=== PATIENT | male | born 1955 | race Caucasian/White ===

== ENCOUNTER 2021-10-04 19:03 | Inpatient (IN) | payer MEDICARE, SELFPAY ==
[2021-10-04 19:25] VITALS: BP 127/79; PULSE 68; RESP 18; TEMP 36.6; O2SAT 96; BMI 28.0
[2021-10-04 22:00] VITALS: BP 127/73; PULSE 75; RESP 18; TEMP 36.4; O2SAT 95; BMI 28.0
[2021-10-04] MEDS: Atorvastatin Calcium 40 MG Tablet PO (22:39)
[2021-10-04] MEDS: MELATONIN 3 MG TABLET PO (22:39)
[2021-10-05] MEDS: Acetaminophen 325 MG Tablet 650 MG PO (04:20)
[2021-10-05] MEDS: Enoxaparin 40 MG/0.4 ML Syringe SC (04:21)
[2021-10-05 05:47] VITALS: O2SAT 98
[2021-10-05 05:51] LABS: Absolute Lymphocyte Count 1.36 X10^3/uL (0.83-4.51); Absolute Neutrophil Count 3.7 X10^3/uL (2.0-7.7); Basophil# 0.02 X10^3/uL; Basophil% 0.3 % (0-1); Eosinophil# 0.17 X10^3/uL; Eosinophils% 2.9 % (0-5); Hemoglobin 15.3 g/dL (13.0-16.5); Lymphocyte # 1.36 X10^3/ul (0.83-4.51); Lymphocyte % 23.1 % (19-41); Mean Corp Hgb Conc 34.8 g/dL (32-36); Mean Corpuscular Hgb 28.7 pg (27.0-32.0); Mean Corpuscular Volume 82.4 fL (80-94); Monocyte# 0.64 X10^3/uL; Monocyte% 10.8 % (0-10); NRBC Flagged by Analyzer 0 % (0-5); Neutrophil # 3.69 X10^3/uL (2.7-7.7); Neutrophil % 62.6 % (47-70); Platelet Count 223 K/mm3 (150-450); RBC Distribution Width CV 12.5 % (11.6-14.6); RBC Distribution Width SD 37.4 fl (35.1-43.9); Red Blood Count 5.34 M/mm3 (4.6-6.2); White Blood Count 5.9 K/mm3 (4.4-11.0)
[2021-10-05 06:16] LABS: ALB/GLOB Ratio 1.2 RATIO (0.9-2.4); AST(SGOT) 24 U/L (15-37); Alanine Aminotransfer ALT/SGPT 56 U/L (16-61); Albumin, Serum 3.7 g/dL (3.2-5.0); Alkaline Phosphatase 96 U/L (45-117); Anion Gap 8 (5-15); BUN 16 mg/dL (7-18); BUN/Creat Ratio 21.2 RATIO (10-20); Calcium,Total 9.2 mg/dL (8.5-10.1); Chloride 101 mmol/L (98-107); Creatinine, Serum 0.76 mg/dL (0.70-1.30); EST Glomerular Filtration Rate 109 mL/min (>60); Est Glom Filt Rate - Afr Amer 132 mL/min (>60); Estimated Creatinine Clearance 71.68 ml/min; Globulin 3.2 g/dL (2.2-4.2); Glucose 104 mg/dL (74-106); Magnesium 2.1 mg/dL (1.6-2.6); Phosphorus 3.3 mg/dL (2.5-4.9); Potassium 3.7 mmol/L (3.5-5.1); Protein, Total 6.9 g/dL (6.4-8.2); Sodium Level 138 mmol/L (136-145)
[2021-10-05] MEDS: Clopidogrel Bisulfate 75 MG Tablet PO (08:34)
[2021-10-05] MEDS: Lisinopril 10 MG Tablet PO (08:34)
[2021-10-05] MEDS: Aspirin E.C. 81 MG Tablet PO (08:34)
[2021-10-05 10:00] VITALS: BP 121/83; PULSE 69; RESP 16; TEMP 36.2; O2SAT 97
--- NOTE | 2021-10-05 10:51 | HP.PCM_ITS ---
HPI - General General Date of Admission: 10/04/21 Date of Service: 10/05/21 HPI Narrative LINDA ALMEIDA, is a 66 YO overweight male with no significant PMH who pre sented to an outside ED on 09/28/21 c/o Left arm weakness/paresthesias and a OLIVA that started the preceding day. 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 CTH showed a right-sided internal carotid artery long segment occlusion just distal to the bifurcation. The right-sided intracranial ci rculation was partially supplied through external carotid/ophthalmic artery communication as well as a patent anterior communicating artery. He was transferred to [facility] and the NIHSS was 3 at presentation to [facility] (1 for paresthesia and 2 for inattention/neglect of the L arm and leg). CTP showed a moderate penumbra. TTE showed a normal EF with no wall motion abnormalities, no significant valvular heart disease and no PFO. LDL was 117 and the HGBA1C was 5.7. The HDL was 53. Neurosurgery was consulted and a DCA was done and showed a R. ICA dissection. He was started on DAPT and he has a follow up CT angiogram scheduled for October. While at [facility] he was seen by PT/OT and ST and acute inpt rehab was recommended. He was transferred to [facility] acute inpt rehab on 10/04/21 for 3 hours of therapy daily to restore function/independence at or near his prior level of function. [facility] Medical History (Updated 10/05/21 @ 13:[address] Radha Lacey, ) Family history of colon cancer in mother Internal carotid artery dissection Melanoma Overweight Medical History unable to obtain Home Medications Lovenox 40 mg OTHER DAILY 10/04/21 [History Last Taken Unknown] aspirin 81 mg PO/SL DAILY 10/04/21 [History Last Taken Unknown] atorvastatin 40 mg PO/SL QHS 10/04/21 [History Last Taken Unknown] clopidogrel [Plavix] 75 mg PO DAILY 10/04/21 [History Last Taken Unknown] lisinopril 10 mg PO/SL DAILY 10/04/21 [History Last Taken Unknown] melatonin 3 mg PO/SL QHS 10/04/21 [History Last Taken Unknown] Allergy/AdvReac Type Severity Reaction Status Date / Time Penicillins [PCN] Allergy PT UNSURE Verified 10/04/21 19:27 OF REACTION Family History (Updated 10/05/21 @ 12:[address] Radha Lacey DO) Father CAD (coronary artery disease) Diabetes Kidney disease Mother Colon cancer Sister Diabetes Brother Diabetes Other Hypertension Family History unable to obtain Surgical History (Updated 10/05/21 @ 13:[address] Radha Lacey DO) History of ankle surgery History of melanoma excision History of tonsillectomy Surgical History unable to obtain Social History (Updated 10/05/21 @ 13:[address] Radha Lacey DO) household members: spouse housing: house number of children: 4 current occupation: [employer] history of recent travel: No current gender identity: male Smoking Status: Former smoker quit date: 11/17/00 Tobacco: How many years used: 20 Electronic Cigarette Use: not used smoking status stop date: 11/17/00 how long ago did patient quit smokin years......he only smoked a rare cigar and never smoked cigarettes. second hand exposure: Yes quit status: quit date established counseling given: patient declined alcohol intake: current alcohol intake frequency: holidays/special occasions only Previous attempts at quittin (pt rarely ever drinks) substance use type: does not use ROS Constitutional Constitutional: Reports difficulty sleeping; Denies anorexia, change in weight, chills, fatigue, fever(s), night sweats or weakness Eyes Eyes: Denies blurry vision, change in vision, eye pain or loss of vision ENT HEENT: Denies abnormal hearing, dysphagia, headache(s), hearing loss, nasal congestion or sore throat Cardiovascular Cardiovascular: Reports lightheadedness; Denies chest pain, dyspnea on exertion, edema, orthopnea, palpitations, paroxysmal nocturnal dyspnea or syncope Respiratory/Chest Respiratory/Chest: Denies cough, dyspnea, shortness of breath at rest, shortness of breath with exertion or wheezing Gastrointestinal Gastrointestinal: Reports constipation; Denies abdominal pain, diarrhea, dyspepsia, hematemesis, hematochezia, nausea or vomiting Genitourinary Genitourinary: Denies dysuria, hematuria, nocturia, urinary frequency, urinary hesitancy, urinary incontinence or urinary urgency Musculoskeletal Musculoskeletal: Reports muscle spasms; Denies back pain, joint pain, joint swelling or neck pain Integumentary Integumentary: Reports dry skin; Denies change in pigmentation, changing lesions, jaundice, unusual bruising or wounds Neurologic Neurologic: Reports disequilibrium, dizziness, focal weakness and paresthesias; Denies confusion, headache(s), seizures or tremor(s) Psychiatric Psychiatric: Denies anxiety, depression, homicidal ideation or suicidal ideation Endocrine Endocrinology: Denies change in body appearance, polydipsia or polyuria Hematologic/Lymphatic Hematologic/Lymphatic: Denies easy bleeding, easy bruising or lymphadenopathy Allergic/Immunologic Allergic/Immunologic: Denies rhinitis, eczemia or asthma Vital Signs Vital Signs Vital Signs: 10/04/21 19:25 10/04/21 22:00 10/05/21 05:47 Temperature 97.8 F 97.6 F L Temperature Source Temporal Temporal Pulse Rate 68 75 Respiratory Rate 18 18 Respiratory Effort Normal Non-Labored Respiratory Depth Normal Respiratory Pattern Normal Blood Pressure 127/79 H 127/73 H Blood Pressure Mean 95 91 Blood Pressure Source Monitor Monitor Blood Pressure Position Semi-Fowlers Semi-Fowlers Blood Pressure Location Right Arm Right Arm Pulse Ox 96 95 98 Oxygen Delivery Method Room Air Room Air Room Air Weight Weight: 189 lb 13.088 oz Body Mass Index (BMI) 28.0 Physical Exam Const alert, oriented x3, no apparent distress, average body habitus, healthy appearing and well nourished Constitutional Narrative: Making good eye contact, appropriate General Appearance: cooperative, comfortable and well kempt HEENT normocephalic, hearing grossly normal bilaterally and moist oral mucous membranes Eyes conjunctivae normal and no scleral icterus Neck no lymphadenopathy, supple, no JVD, thyroid normal and no carotid bruits General: trachea midline Chest Chest: symmetrical chest wall rise Resp normal respiratory effort, no use of accessory muscles and clear to auscultation bilaterally Resp Narrative: Not tachypneic and no conversational dyspnea. Excellent air exchange throughout Cardio regular rate, regular rhythm, S1 normal heart sound, S2 normal heart sound, no murmurs, no rub and no gallops Jugular Venous Distention: Negative for JVD GI normal to inspection, nondistended, normoactive bowel sounds, soft to palpation and non-tender GI Narrative: No guarding with palpation. no CVA tenderness Back/Spine Lumbar Spine / Lower Back: normal to inspection; Negative for paraspinal muscle tenderness or paraspinal muscle spasm Extremity normal capillary refill, no clubbing, cyanosis or edema and no pedal edema Extremity Narrative: Negative Jose's and Fredrick's signs Skin no wounds, no jaundice and no petechiae Skin Narrative: No rashes, no skin breakdown. He has a cicatrix on the R mid back and on the L shoulder due to melanoma e xcision in the past General Skin Exam: no breakdown Rashes: no rashes Neuro oriented x3 and CN's II-XII intact bilaterally Neuro Narrative: He has Left side neglect/inattention of the arm and the leg. Strength is 5/5 throughout. Decreased sensation and fine motor coordination of the L hand. He is left hand dominant.....this numbness did not exist prior to the stroke Speech: speech normal Sensory Exam: double simultaneous stimulation for sensation abnormal Motor Exam: strength 5/5 throughout Psych affect normal Psych Narrative: Does not make good eye contact. Able to stay on topic and focus. No flight of ideas. Does not appear anxious or depressed. Conversant and relating well to staff. Appearance: grossly normal Attitude: calm Activity / Motor Behavior: Negative for psychomotor agitation, psychomotor slowing, fidgetting, hyperactive, disorganized or restless Results Lab / Micro Data Result Diagrams: 10/05/21 05:08 10/05/21 05:08 Labs: Laboratory Results - last 24 hr 10/05/21 05:08: WBC 5.9, RBC 5.34, Hgb 15.3, Hct 44.0, MCV 82.4, MCH 28.7, MCHC 34.8, RDW Std Deviation 37.4, RDW Coeff of Magdaleno 12.5, Plt Count 223, MPV 10.0, Immature Gran % (Auto) 0.300, Neut % (Auto) 62.6, Lymph % (Auto) 23.1, [place] % (Auto) 10.8 H, Eos % (Auto) 2.9, Baso % (Auto) 0.3, Absolute Neuts (auto) 3.7, Absolute Lymphs (auto) 1.36, Nucleated RBC % 0 10/05/21 05:08: Sodium 138, Potassium 3.7, Chloride 101, Carbon Dioxide 29.0, Anion Gap 8, BUN 16, Creatinine 0.76, Estim Creat Clear Calc 71.68, Est GFR (MDRD) Af Amer 132, Est GFR (MDRD) Non-Af 109, BUN/Creatinine Ratio 21.2 H, Glucose 104, Calcium 9.2, Phosphorus 3.3, Magnesium 2.1, Total Bilirubin 0.60, AST 24, ALT 56, Alkaline Phosphatase 96, Total Protein 6.9, Albumin 3.7, Globulin 3.2, Albumin/Globulin Ratio 1.2 Assessment & Plan Assessment/Plan (1) Physical debility: (2) Internal carotid artery dissection: (3) Ischemic cerebrovascular accident (CVA): (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 DVT prophylaxis with enoxaparin 40 mg subcu daily Follow up with: 1. Dr. Amanuel Cartwright October 31 at [address] angiogram November 05 (arrive by 0800) 3. Dr. Mike Oleary SundayFebruary 01 12 PM (arrive by 1145AM) AM lab including CMP, CBC, Mag and Phos -reviewed His mother had colon cancer and he has never had a colonoscopy. I told him colon cancer can be hereditary and he should ask his PCP about scheduling a colonoscopy post DC. Will need to recheck a liver panel and a lipid panel in 6 weeks. Charges/Coding Visit Charges Inpatient E&M: 12344 Init Hosp L3
--- NOTE | 2021-10-05 11:08 | REHABEVAL_ITS ---
Admission Information Primary Diagnosis:: Physical debility secondary to ischemic stroke. Status Changes from Prescreening?: No changes Identified Actual Problem List:: Cognitve Impr/Memory Loss, Bowel, Constipation, Mobility Impaired, Self Care Deficit, Know.Dfct of Medicaitons and Alteration-Leisure Activ. Potential Problem List:: DVT, Bleeding, Infection, UTI, Aspiration, Falls, Skin Integrity and Depression Risk of Complications DVT: LMWH and TEENA Hose Bleeding: Monitor Lab Values, Nursing to Teach Precautions for anti-coagulation therapy., Wound, if applicable, to be assessed every shift. and Stroke patients assessed for lethargy or change in status. Infection: Clinical Staff to Monitor for S/S of infection: and S/S of infection include fever, redness, warmth, etc. Urinary Tract Infection: Monitor for frequency, burning, discomfort, or incontinence. and Nursing will obtain urine sample for urinalysis and C&S when ordered. Aspiration: Clinical staff will monitor for coughing, drooling, congestion., Speech will evaluate swallowing and dsyphasia. and Nursing will monitor patient swallowing during meals. Falls: Patient will be evaluated for Fall Precautions and Patient will be placed on Fall Precautions as indicated per protocol. Skin Breakdown: Nursing will assess skin daily using assessment tool. and Nursing will place on Skin Breakdown Precautions as indicated. Pain: Clinical staff will assess patient's pain level per protocol., Medications will be given, if needed, and the pain level reassessed. and Other methods: Massage, distraction, decrease stimulus, etc. used PRN. Plan of Care Patient requires physician specializing in physical medicine and rehab oversight to provide close medical supervision of rehab issues including: Pain Management, Sleep Problems, Bowel and Bladder, Medical and co-morbidity Management, DVT prophylaxis, Rehabilitation Leadership and Coordination of treatment team Patient needs Physical Therapy: For a minimum of 1 hour and At least 5 out of 7 days Patient needs Physical Therapy to improve:: Mobility, Strengthening, Transfers, Stretching, ROM, Endurance, Stairs, Gait and Balance Patient needs Occupational Therapy: For a minimum of 1 hour and At least 5 out of 7 days Patient needs Occupational Therapy to improve ADL's incl.: Eating, Grooming, Bathing, Dressing, Toileting, Toilet transfers, Community Reintegration, Higher functioning activities, Household tasks, Adaptive Equipment, Splinting and Other activities as determined Patient requires speech therapy: For a minimum of 1 hour and At least 5 out of 7 days Patient requires speech therapy for: Swallowing, Cognition, Language Skills and Compensatory Strategies Patient requires 24/ Rehabilitation Nursing for: Pain Issues, Identifying and preventing risk factors, Monitoring and reporting current medical conditions, Assisting with ambulation, transfer, and all ADL's, Teaching patients about disease process and medications, Family teaching, Providing safe environment, Bowel and Bladder Issues, Skin integrity and Medication Management Patient needs Blood Bank Calendar Control Clerk/ Case Management for: Discharge Planning, Arranging Home Equipment or Services and Family Interventions Patient needs Dietary and Nutrition Services for: Adequate Nutrition, Nutritional Supplements and Nutritional Education Goals Patient will remain: free from falls and or injury at time of discharge. Patient will perform bed mobility at: MOD I level of assist. Patient will complete transfers from bed to chair at: MOD I level of assist. Patient will ambulate: with LRD and - (Patient will ambulate 750 feet at supervision following written directional cues to find various locations) Patient will complete upper body dressing at: MOD I level of assist. Patient will complete lower body dressing at: MOD I level of assist. Patient will complete toileting at: MOD I level of assist. Patient will perform bathing at: MOD I level of assist. Patient will complete grooming at: MOD I level of assist. Patient will complete home management skills at: MOD I level of assist. Patient will achieve: 12 stairs (With 2 handrails at standby assist) and - (1 curb step) Patient will have pain level of: of 3 or less Patient's skin will: remain intact Patient will receive: adequate nutrition. Discharge Planning Pt Prognosis for Sig. Practical Improv. w/in Reasonable Time: Good Estimated Length of stay (days): 10
--- NOTE | 2021-10-05 13:26 | CASEMGMT ---
Social Work Pt presenting to the Rehab unit with diagnosis of stroke. PHQ9 depression screen completed at this time with a score of 4/27 indicating minimal depression. Pt denies any concerns with depression at this time and is able to identify his and children as support people who assist with coping. Pt made aware SW will remain available as needed. YOLIE Marin
[2021-10-05 13:40] VITALS: BMI 28.0
[2021-10-05 20:25] VITALS: BP 135/83; PULSE 85; RESP 18; TEMP 36.7; O2SAT 95; BMI 28.0
[2021-10-05] MEDS: MELATONIN 3 MG TABLET PO (20:54)
[2021-10-05] MEDS: Senna/Docusate Sodium 1 Tablet 2 TABLET PO (20:54)
[2021-10-05] MEDS: Atorvastatin Calcium 40 MG Tablet PO (20:54)
--- NOTE | 2021-10-06 04:37 | NURSING ---
REVIEWED AND AGREE WITH PATIENT SERVICE TECHNICIAN PST'S FUNCTIONAL ASSESSMENT AND HANDOFF CHARTING.
[2021-10-06] MEDS: Enoxaparin 40 MG/0.4 ML Syringe SC (06:20)
--- NOTE | 2021-10-06 06:46 | NURSING ---
staff to room at 0620; pt laying in the bed with an angry look on his face , when asked what was the matter pt stated that he did not sleep well with all the noise last night. pt stated with all the doors slamming and that man coughing, then that sleeping pill that i'm taking is giving weird dreams and making me do strange things . pt did not elaborate on what when asked, then stated i need some ice water now. staff replied to pt that would be taken care after his medication was given for this morning. staff asked pt if he would like to freshen up for the morning since he showered at . pt replied that he would wash his face but continues to lay in the bed . staff went to get pt water and pt remained in the bed and staff suggested that if he could be assisted in helping pick out clothes for the day, pt was agreeable. pt wanted his black shorts, staff retrieved his bag and was unable to find a 2nd pair of shorts, when staff mentioned that he had his black shorts on pt responded its ok if you cant find them i'll look for them later . staff pulled out a different pair of shorts and pt was agreeable to wearing. pt continued to lay in the bed and staff stated that pt needed to get cleaned up while staff remained in the room but he could have the br door shut for privacy. pt then proceeded to get out of the bed and went to the br and washed his face but did not change his shorts even though staff showed him were they were placed. pt questioned about the bladder scans this am and pt was reminded that this was done on everyone and this gives a idea what is happening if something should go wrong. pt stated ok. pt returned to be the bed to rest before breakfast
[2021-10-06] MEDS: Aspirin E.C. 81 MG Tablet PO (07:50)
[2021-10-06] MEDS: Clopidogrel Bisulfate 75 MG Tablet PO (07:50)
[2021-10-06] MEDS: Lisinopril 10 MG Tablet PO (07:50)
[2021-10-06 10:00] VITALS: BP 137/86; PULSE 66; RESP 18; TEMP 36.1; O2SAT 97
--- NOTE | 2021-10-06 11:04 | PCM.PN.BLA ---
Progress Note César was seen on TEAM rounds today. Hid son Kun participated in rounds by phone. afebrile Blood pressures well controlled Maintaining appropriate oxygen saturation on room air Poor oral intake Lab bowel movement was 10/04/2021 Has only had 1 bladder scan for post void residual and that was 150. No problems per nursing Having trouble with cognition. Also having significant L side neglect. Easily distracted. Having problems sequencing. Medication list was reviewed. He is on dual antiplatelet therapy, a statin and Lisinopril. His only complaint is that he has not been sleeping well with the Melatonin. Denies CP, SOB, palpitations, N/V/abd pain. No calf pain and no lightheadedness. Physical Exam Const alert, oriented x3 and no apparent distress General Appearance: cooperative Resp clear to auscultation bilaterally Resp Narrative: excellent air exchange Effort and Inspection: able to speak in complete sentences Cardio regular rate, regular rhythm, S1 normal heart sound, S2 normal heart sound, no murmurs, no rub and no gallops GI normal to inspection, nondistended, normoactive bowel sounds, soft to palpation and non-tender Extremity normal capillary refill, no calf tenderness and no pedal edema Skin General Skin Exam: no breakdown Rashes: no rashes Neuro Neuro Narrative: 5/5 strength throughout. Decreased sensation and fine motor coordination with the L hand. Left side neglect. No visual disturbance. Easily distracted. Psych affect normal Assessment & Plan Assessment/Plan (1) Physical debility: PLAN: continue therapy.......suspect cognition and left side neglect will be his 2 biggest hurdles. All questions were answered. (2) Internal carotid artery dissection: PLAN: Continue statin and dual antiplatelet therapy. He has a follow-up appointment for a CTA of the head in October. (3) Ischemic cerebrovascular accident (CVA): PLAN: Continue Lipitor, DAPT. (4) Left-sided neglect: PLAN: I will recommend that prior to starting to drive again he take the driving course in [place]. (5) HTN (hypertension): PLAN: Well controlled on Lisinopril. (6) Hyperlipidemia LDL goal <70: PLAN: lipid panel and a liver panel in 6 weeks. (7) Nodule of parotid gland: PLAN: Refer to ENT at [place] - may need a bx to r/o metastatic melanoma. Visit Charges Inpatient E&M: 58454 Subs Hosp L2
--- NOTE | 2021-10-06 14:14 | CASEMGMT ---
Social Work IDT met with patient and son, Kun, via conference call for Team meeting. Discussed patient's progress in PT/OT/ST and nursing. Pt progressing well, however, pt is having most difficulty with left sided neglect, cognition, dizziness, processing, following directions, dexterity and sensation in left hand. Pt is having trouble sleeping. changing medications. Explained Medicare approved 11 days with DC 10/15. The goal is for pt to return home with . Pt requesting outpatient services at [facility]. SW to assist with referrals at [place]. Educated to Stroke Support Group for pt and family to attend. Provided brochure and September newsletter. Pt agreeable to attend while admitted. SW to continue to follow. Dionne Hernandez, BATH ATTENDANT ACCESS DATABASE DEVELOPER
[2021-10-06 16:38] VITALS: O2SAT 96
[2021-10-06 16:45] VITALS: BMI 28.0
[2021-10-06 19:42] VITALS: BP 122/69; PULSE 69; RESP 16; TEMP 36.7; O2SAT 95
[2021-10-06] MEDS: traZODone 50 MG Tablet 25 MG PO (20:06)
[2021-10-06] MEDS: Atorvastatin Calcium 40 MG Tablet PO (20:06)
[2021-10-07 00:23] VITALS: BMI 28.0
[2021-10-07] MEDS: Enoxaparin 40 MG/0.4 ML Syringe SC (05:19)
[2021-10-07] MEDS: Acetaminophen 325 MG Tablet 650 MG PO (05:45)
[2021-10-07 07:00] VITALS: BP 148/68; PULSE 72; RESP 17; TEMP 36; O2SAT 98
[2021-10-07] MEDS: Aspirin E.C. 81 MG Tablet PO (08:43)
[2021-10-07] MEDS: Clopidogrel Bisulfate 75 MG Tablet PO (08:43)
[2021-10-07] MEDS: Lisinopril 10 MG Tablet PO (08:44)
--- NOTE | 2021-10-07 10:22 | PN_ITS ---
Progress Note Afebrile Vital signs are stable and the blood pressure is well controlled Maintaining appropriate oxygen saturation on room air Better oral intake yesterday Post void residuals x2 are less than 200. No complaints today. Slept better last night with the Trazodone. Alert and oriented X 3 HRRR L- CTA No calf pain and no ankle edema making good eye contact. Impressions 1. S/P ischemic CVA in the R MCA distribution 2. R ICA dissection - on DAPT and a statin. 3. HTN - controlled with Lisinopril 4. cognitive dysfunction 5. Loss of sensation in the LUE - he is L hand dominant 6. Left side neglect Continue therapy. His is coming to visit today. Will consult the executive director of marketing to instruct in a low fat, low salt diet. Continue the Trazodone. Visit Charges Inpatient E&M: 51220 Subs Hosp L1
[2021-10-07 11:54] VITALS: O2SAT 98
[2021-10-07 13:33] VITALS: BMI 28.0
[2021-10-07 20:00] VITALS: BP 120/79; PULSE 84; RESP 16; TEMP 36.2; O2SAT 97
[2021-10-07] MEDS: traZODone 50 MG Tablet 25 MG PO (21:04)
[2021-10-07] MEDS: Atorvastatin Calcium 40 MG Tablet PO (21:04)
[2021-10-08 00:59] VITALS: BMI 28.0
[2021-10-08] MEDS: Enoxaparin 40 MG/0.4 ML Syringe SC (06:42)
[2021-10-08 07:41] VITALS: BP 139/93; PULSE 77; RESP 18; TEMP 36.4; O2SAT 96
[2021-10-08] MEDS: Lisinopril 10 MG Tablet PO (07:47)
[2021-10-08] MEDS: Clopidogrel Bisulfate 75 MG Tablet PO (07:47)
[2021-10-08] MEDS: Aspirin E.C. 81 MG Tablet PO (07:47)
[2021-10-08 09:52] VITALS: O2SAT 95
[2021-10-08] MEDS: Acetaminophen 325 MG Tablet 650 MG PO (10:33)
[2021-10-08 12:31] VITALS: BMI 28.0
[2021-10-08] MEDS: Atorvastatin Calcium 40 MG Tablet PO (19:57)
[2021-10-08] MEDS: Senna/Docusate Sodium 1 Tablet 2 TABLET PO (19:57)
[2021-10-08] MEDS: traZODone 50 MG Tablet 25 MG PO (19:58)
[2021-10-08 20:03] VITALS: RESP 16
[2021-10-08 20:12] VITALS: BP 127/91; PULSE 65; RESP 18; TEMP 36.7; O2SAT 94
[2021-10-09] MEDS: Acetaminophen 325 MG Tablet 650 MG PO (05:10)
[2021-10-09] MEDS: Enoxaparin 40 MG/0.4 ML Syringe SC (05:10)
[2021-10-09 07:21] VITALS: BP 126/87; PULSE 93; RESP 16; TEMP 36.5; O2SAT 93
[2021-10-09] MEDS: Aspirin E.C. 81 MG Tablet PO (07:35)
[2021-10-09] MEDS: Lisinopril 10 MG Tablet PO (07:35)
[2021-10-09] MEDS: Clopidogrel Bisulfate 75 MG Tablet PO (07:35)
[2021-10-09 17:00] VITALS: BMI 28.0
[2021-10-09 19:36] VITALS: BP 129/75; PULSE 60; RESP 14; TEMP 36.7; O2SAT 97
[2021-10-09] MEDS: traZODone 50 MG Tablet 25 MG PO (19:48)
[2021-10-09] MEDS: Senna/Docusate Sodium 1 Tablet 2 TABLET PO (19:48)
[2021-10-09] MEDS: Atorvastatin Calcium 40 MG Tablet PO (19:48)
[2021-10-09 19:52] VITALS: PULSE 69; O2SAT 95
[2021-10-10] MEDS: Enoxaparin 40 MG/0.4 ML Syringe SC (05:26)
[2021-10-10 07:28] VITALS: BP 109/72; PULSE 64; RESP 16; TEMP 36.6; O2SAT 96
[2021-10-10] MEDS: Aspirin E.C. 81 MG Tablet PO (07:53)
[2021-10-10] MEDS: Clopidogrel Bisulfate 75 MG Tablet PO (07:53)
[2021-10-10] MEDS: Lisinopril 10 MG Tablet PO (07:53)
--- NOTE | 2021-10-10 09:30 | PN_ITS ---
Progress Note Afebrile VSS Maintaining appropriate oxygen saturation on RA Oral intake is good Discussed with nursing - no problems that need addressed Reviewed the PT/OT/ST notes - He is doing well as far as strength goes. He is ambulating without an AD. Can climb steps and is able to do his ADL's. His processing time is increased. He has significant L side neglect. He had considerable difficulty making a bowl of oatmeal making many errors requiring the therapist to point out the errors. He is starting to realize there is a problem with cognition. The therapists feel he needs intensive therapy with concentration on ST to be able to get to or near his prior level of function.......he was working as a chiu. He is doing better at identify ng visual clues so he can locate his room coming back from surgery. Medication list reviewed. Denies OLIVA, CP, SOB, palpitations, lightheadedness, dysuria, anxiety/depression. He has exercises the ST gave him to do in his room and tells me that he has been working on them. He expressed concern about doing his job as a chiu and using saws and other dangerous equipment. He also tells me that he thinks it is a good idea to attend the driving program in [place] to make sure he is going to be safe on the room when he is ready to try driving again. He tells me that he is not in a hurry. He is having some trouble word finding. Told me he did not have much problem with the oatmeal this morning and it was only a measuring mistake and no big deal. Physical Exam Const alert General Appearance: cooperative, well developed and anxious Eyes PERRL, EOMs intact bilaterally, conjunctivae normal and no scleral icterus Resp normal respiratory effort, normal air movement, no use of accessory muscles and clear to auscultation bilaterally Effort and Inspection: able to speak in complete sentences Cardio regular rate, regular rhythm, S1 normal heart sound, S2 normal heart sound and no gallops GI soft to palpation, non-tender and non-distended Extremity no calf tenderness and no pedal edema Skin General Skin Exam: no breakdown Rashes: no rashes Psych Appearance: grossly normal Attitude: evasive Activity / Motor Behavior: fidgetting, restless and other will not make eye contact with me even when I move my chair directly into the area he is looking. ; Negative for appropriate eye contact Speech: other perseverates somewhat. No slurring. Speech is not pressured. He is a little evasive. 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 Continue therapy. He needs intensive ST and PT/OT will also work with him to follow instructions, sequence, etc. 2. BP is well controlled 3. He is c/o some muscle cramps after doing toe raises. 4. Sleeping better with Trazodone and a new mattress 5. Wants very much to go home and tells me that he is willing to come back as much as he has to for ST. 6. will attempt to talk with his when she comes in next about his anxiety......did this just start? He tells me he was having some problems with memory that predated the stroke. 7. The nodule in the parotid gland needs to be evaluated post DC since he has a hx of melanoma. 8. FH of colon CA. He has never had a colonoscopy. Stool here is heme negative. Needs a colonoscopy in the near future. Visit Charges Inpatient E&M: 23686 Subs Hosp L2
--- NOTE | 2021-10-10 14:07 | CASEMGMT ---
Social Work IDT discussed patient's progress as DC date 10/14 is approaching. Pt is doing well physically, but still significant cognitive deficits. ST recommending continued intensive therapy before transitioning to outpatient. Spoke with pt to discuss possible SNF. Provided SNF list with Medicare ratings. Pt inquired about TCU. Explained TCU and IDT agreeable for transition. Pt requested to speak with son. Spoke with son, answered questions and explained the benefit of continuing with about 2hrs/day of ST in TCU prior to DC home with outpatient. Offered for pt to DC prior to [place], which would give patient about another week of therapy and would already have DC date established. Son agreeable to plan but unsure pt would agree. Son will visit pt this evening and discuss. SW to continue to follow. MACRINA SuW
[2021-10-10 15:51] VITALS: BMI 28.0
[2021-10-10 19:52] VITALS: BP 118/68; PULSE 66; RESP 16; TEMP 36.8; O2SAT 96
[2021-10-10] MEDS: traZODone 50 MG Tablet 25 MG PO (20:35)
[2021-10-10] MEDS: Atorvastatin Calcium 40 MG Tablet PO (20:35)
[2021-10-11 02:31] VITALS: BMI 28.0
[2021-10-11] MEDS: Enoxaparin 40 MG/0.4 ML Syringe SC (06:13)
[2021-10-11 07:34] VITALS: BP 150/87; PULSE 83; RESP 18; TEMP 36.1; O2SAT 96
[2021-10-11] MEDS: Senna/Docusate Sodium 1 Tablet 2 TABLET PO (08:01)
[2021-10-11] MEDS: Lisinopril 10 MG Tablet PO (08:01)
[2021-10-11] MEDS: Clopidogrel Bisulfate 75 MG Tablet PO (08:01)
[2021-10-11] MEDS: Aspirin E.C. 81 MG Tablet PO (08:01)
[2021-10-11 12:34] VITALS: BMI 28.0
--- NOTE | 2021-10-11 14:08 | PN_ITS ---
Progress Note Afebrile VSS Maintaining appropriate oxygen saturation on RA Oral intake is good Discussed with nursing - no problems that need addressed other than he and his family want to visit during therapy hours Reviewed the PT/OT/ST notes Medication list reviewed He has no complaints today. He and his family attended the lecture to the Stroke Group today in the [facility] Board room. All questions were answered. I spoke with his amrsggai-hs-ozz Keyla and she is aware of the cognitive deficits and is also aware that he is not completely aware of the extend of the cognitive deficit. He is eager to go home and does not want to continue therapy in TCU following DC from rehab. His and Keyla would like to come in for family training with St to learn how best to help him. They have noticed he is fidgety/anxious and this is new for him. I suspect this will improve when he is home........he misses seeing his family as often as he would like. Physical Exam Const alert, oriented x3, no apparent distress, average body habitus, healthy appearing and well nourished Constitutional Narrative: Does not make eye contact with me when I am speaking to him and when I was speaking with his dtr he inappropriately interrupted to show her what his homework is for ST rather than waiting as she asked. He is impulsive and has poor safety awareness. General Appearance: well kempt, well developed and anxious HEENT moist oral mucous membranes Chest Chest: symmetrical chest wall rise Resp normal respiratory effort, normal air movement, no use of accessory muscles and clear to auscultation bilaterally Resp Narrative: excellent air exchange Effort and Inspection: able to speak in complete sentences Cardio regular rate, regular rhythm, S1 normal heart sound, S2 normal heart sound, no murmurs, no rub and no gallops Jugular Venous Distention: Negative for JVD GI normal to inspection, nondistended, normoactive bowel sounds, soft to palpation, non-tender and non-distended GI Narrative: No guarding with palpation. Extremity normal capillary refill, no clubbing, cyanosis or edema, no calf tenderness and no pedal edema Extremity Narrative: Negative Jose's and Fredrick's signs Skin General Skin Exam: no breakdown Rashes: no rashes Neuro oriented x3 and CN's II-XII intact bilaterally Neuro Narrative: 5/5 strength throughout. Decreased sensation and fine motor coordination with the L hand. Left side neglect. No visual disturbance. Easily distracted. Speech: speech normal Sensory Exam: double simultaneous stimulation for sensation abnormal Motor Exam: strength 5/5 throughout Psych Psych Narrative: Does not make good eye contact. Able to stay on topic and focus. No flight of ideas.He is anxious and shaking his leg and fidgeting Appearance: grossly normal Attitude: calm and evasive Activity / Motor Behavior: fidgetting, restless and other will not make eye contact with me even when I move my chair directly into the area he is looking. ; Negative for appropriate eye contact, psychomotor agitation, psychomotor s lowing, hyperactive or disorganized Speech: other perseverates somewhat. No slurring. Speech is not pressured. He is a little evasive. 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 Continue therapy 2. OP ST at DC 3. family will come in for training tomorrow 4. No DME needed 5. He will need 24/7 supervision at least for 2 weeks to make sure he will be safe for a short period of time if his goes out 6. He needs to have the parotid nodule evaluated following DC since he has a hx of melanoma. I left a VM for Keyla his dtr-in-law to call me. Visit Charges Inpatient E&M: 08572 Subs Hosp L2
[2021-10-11] MEDS: Atorvastatin Calcium 40 MG Tablet PO (19:42)
[2021-10-11] MEDS: traZODone 50 MG Tablet 25 MG PO (19:43)
--- NOTE | 2021-10-11 19:43 | NURSING ---
Requested HS meds at this time.
[2021-10-11 20:00] VITALS: BP 120/75; PULSE 64; RESP 16; TEMP 36.3; O2SAT 97
[2021-10-12 00:33] VITALS: BMI 28.0
[2021-10-12] MEDS: Enoxaparin 40 MG/0.4 ML Syringe SC (04:58)
[2021-10-12] MEDS: Aspirin E.C. 81 MG Tablet PO (08:14)
[2021-10-12] MEDS: Acetaminophen 325 MG Tablet 650 MG PO (08:14)
[2021-10-12] MEDS: Lisinopril 10 MG Tablet PO (08:14)
[2021-10-12] MEDS: Clopidogrel Bisulfate 75 MG Tablet PO (08:14)
[2021-10-12 09:21] VITALS: BP 144/80; PULSE 70; RESP 16; TEMP 36.1; O2SAT 97
[2021-10-12 13:56] VITALS: BMI 28.0
--- NOTE | 2021-10-12 14:20 | CASEMGMT ---
Social Work Spoke with pt's dtr about DC plans. Dtr states pt is not agreeable to TCU. Also that pt understood he was to DC 10/14 instead of 10/15, and he is not willing to stay another day despite IDT strong recommendations of getting the extra day of therapy. This worker understands and can have pt DC'd 10/15. Pt requesting [facility] outpatient ST. Referral made and first appt scheduled. Family to transport pt. No DME needs. Plan: DC home with family support 10/15, [facility] outpatient ST. Dionne Hernandez MSW [employer]
[2021-10-12 19:30] VITALS: BP 130/72; PULSE 80; RESP 18; TEMP 36.6; O2SAT 96
[2021-10-12] MEDS: traZODone 50 MG Tablet 25 MG PO (20:03)
[2021-10-12] MEDS: Atorvastatin Calcium 40 MG Tablet PO (20:04)
--- NOTE | 2021-10-12 20:28 | PN.TCU_ITS ---
Subjective Subjective Patient seen, examined. He is lying in bed, wearing dark sunglasses. His only complaint is dry nostrils, otherwise no new problems, concerns, issues, complaints. He is progressing in therapy, and doing well. Objective Data Objective Data Vital Signs: Vital Signs Temp Pulse Resp BP Pulse Ox 97.0 F L 70 16 144/80 H 97 10/12/21 09:21 10/12/21 09:21 10/12/21 09:21 10/12/21 09:21 10/12/21 09:21 Oxygen Delivery Method Room Air Weight: 84.368 kg Body Mass Index (BMI) 28.0 Intake & Output: Intake and Output for Last 24 Hours 10/10/21 10/11/21 10/12/21 23:59 23:59 23:59 Intake Total 540 / 540 1760 / 1760 1100 / 1100 Balance 540 / 540 1760 / 1760 1100 / 1100 Lab / Micro Data Result Diagrams: 10/05/21 05:08 10/05/21 05:08 Micro: Microbiology 10/06/21 19:25 Stool Stool Occult Blood (JEOVANNY) - Final Physical Exam Const alert and oriented x3 General Appearance: cooperative HEENT normocephalic Eyes PERRL and EOMs intact bilaterally Neck supple, no JVD and no carotid bruits Resp normal respiratory effort, normal air movement and clear to auscultation bilaterally Cardio regular rate and regular rhythm GI normal to inspection, nondistended, normoactive bowel sounds, non-tender and non-distended Extremity normal capillary refill General Extremity: Negative for edema Skin no rashes or lesions noted General Skin Exam: no breakdown Neuro Neuro Narrative: Left hemiparesis. 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 * Debility - PT/OT. * Cognition - ST. * Pain - Tylenol 650mg q6h prn pain. * Bowel - Senna/colace 2 tablets bid, MOM 30ml po x1 prn constipation. * DVT prophylaxis - Lovenox 40mg sc daily. * Stroke - Aspirin 81mg daily, Plavix 75mg daily. * Hyperlipidemia - Atorvastatin 40mg qhs. * Hypertension - Lisinopril 10mg daily. * Dry nares - Traverse nasal spray 2 sprays tid prn. * Insomnia - Trazodone 25mg qhs. Capacity Capacity Assessment Tool Can the patient make a choice & communicate that choice?: Yes Can the patient understand benefits, risks and alternatives?: Yes Can the patient make a logical, rational choice?: Yes Is there an impending, emergent risk to the patient?: No Does the patient have an Advance Directive?: No Is there a Surrogate Available?: Yes i.e. HCPOA: Yes i.e. close relative (spouse, child, parent, sibling)?: Yes
[2021-10-13 00:49] VITALS: BMI 28.0
[2021-10-13] MEDS: Enoxaparin 40 MG/0.4 ML Syringe SC (06:39)
[2021-10-13 08:13] VITALS: BP 139/82; PULSE 62; RESP 16; TEMP 36.7; O2SAT 99
[2021-10-13] MEDS: Clopidogrel Bisulfate 75 MG Tablet PO (09:31)
[2021-10-13] MEDS: Lisinopril 10 MG Tablet PO (09:31)
[2021-10-13] MEDS: Aspirin E.C. 81 MG Tablet PO (09:31)
[2021-10-13 17:00] VITALS: BMI 28.0
[2021-10-13 19:23] VITALS: BP 111/73; PULSE 59; RESP 18; TEMP 36.6; O2SAT 97
--- NOTE | 2021-10-13 19:51 | DS.PCM_ITS ---
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: Status: Acute Code(s): I63.9 - Cerebral infarction, unspecified; R41.89 - Other symptoms and signs involving cognitive functions and awareness (3) HTN (hypertension): Status: Chronic Code(s): I10 - Essential (primary) hypertension (4) Hyperlipidemia LDL goal <70: Status: Acute Code(s): E78.5 - Hyperlipidemia, unspecified (5) Physical debility: Status: Acute Code(s): R53.81 - Other malaise (6) Insomnia: Status: Acute Code(s): G47.00 - Insomnia, unspecified Medications at Discharge Home Medications aspirin 81 mg PO/SL DAILY 10/04/21 atorvastatin 40 mg PO QHS 30 Days #30 tab 10/13/21 clopidogrel 75 mg PO DAILY 30 Days #30 tab 10/13/21 lisinopril 10 mg PO DAILY 30 Days #30 tab 10/13/21 sodium chloride [Deep Sea Nasal] 2 spray NASAL TID PRN PRN #0 ml 10/13/21 trazodone 25 mg PO 2000 30 Days #15 tab 10/13/21 Hospital Course Operations None Procedures None Summary of Care Provided Minutes Spent on Discharge: 30 Hospital Course: 66 year old male with below past medical history hospitalized for stroke, left hemiparesis, left neglect, admitted to for 3 hours daily of rehabilitation, strengthening, prior to discharge home. Discharge home with family support 10/14/2021, [facility] outpatient [facility] Physical Exam Const alert and oriented x3 General Appearance: cooperative HEENT normocephalic Eyes PERRL and EOMs intact bilaterally Neck supple, no JVD and no carotid bruits Resp normal respiratory effort, normal air movement and clear to auscultation bilaterally Cardio regular rate and regular rhythm GI normal to inspection, nondistended, normoactive bowel sounds, non-tender and non-distended Extremity normal capillary refill General Extremity: Negative for edema Skin no rashes or lesions noted General Skin Exam: no breakdown Psych affect normal Appearance: appropriate Weight / BMI Weight Weight: 84.368 kg Body Mass Index (BMI) 28.0 ABG / Lab / Microbiology Data Result Diagrams: 10/05/21 05:08 10/05/21 05:08 Microbiology: Microbiology 10/06/21 19:25 Stool Stool Occult Blood (JEOVANNY) - Final D/C Instructions Discharge Diet: No restrictions Discharge Activity: Return to Normal Activity, May Shower and Use Walker May resume sexual activity in: No Restrictions Weight Bearing Status: Weight bearing as tolerated Call your doctor if you observe: Fever of 101 or Higher, Inability to urinate, Inability to have a bowel movement, Shortness of breath, Dizziness, Fainting spells, Swelling in the ankles, Chest pain and Uncontrolled pain Additional Instructions: Discharge home with family support 10/14/2021, [facility] ST. Meaningful Use Info Meaningful Use Diagnoses (Choose all that apply): Ischemic CVA CVA Therapy Assessed for PT,OT and/or ST?: Yes Ischemic Stroke Antithrombotic order at d/c?: Yes Dx of Atrial fib/flutter?: No Statins at discharge?: Yes Primary Dx Acute Ischemic CVA?: Yes IV tPA ordered during stay?: No Reason IV t-PA not ordered: Treatment not Indicated Discharge Plan Admission Admit Date/Time: 10/04/21 19:03 Primary Reason for Your Visit: Debility. Attending Provider: Radha Lacey Primary Care Provider: Care Physician,No Primary Instructions Additional Instructions / Restrictions: 1. Because of the left side neglect I recommend that you attend the driving course in [place] prior to starting to drive on the roads. - [facility], [address] [place] [id number], 2. The nodule in the R parotid gland needs to be followed up on. Melanoma can metastasize any where in the body and the nodule may need biopsied. 3. Because your mother of colon cancer you should have already had at least 2 colonoscopies. Please discuss this with your PCP. Discharge home with family support 10/14/2021, [facility] ST. Discharge Orders/Prescriptions Prescriptions: New atorvastatin 40 mg Tablet 40 mg PO QHS 30 Days Qty: 30 RF: 0 trazodone 50 mg Tablet 25 mg PO 2000 30 Days Qty: 15 RF: 0 sodium chloride [Deep Sea Nasal] 0.65 % Aerosol,[place] 2 spray NASAL TID PRN PRN (Reason: NASAL DRYNESS) Qty: 0 RF: 0 clopidogrel 75 mg Tablet 75 mg PO DAILY 30 Days Qty: 30 RF: 0 lisinopril 10 mg Tablet 10 mg PO DAILY 30 Days Qty: 30 RF: 0 Continued aspirin 81 mg PO/SL DAILY RF: 0 Discontinued clopidogrel [Plavix] 75 mg Tablet 75 mg PO DAILY RF: 0 atorvastatin 40 mg PO/SL QHS RF: 0 lisinopril 10 mg PO/SL DAILY RF: 0 melatonin 3 mg PO/SL QHS RF: 0 Lovenox 40 mg OTHER DAILY RF: 0 Referrals / Follow Up: Amanuel Cartwright [Other] ([facility] 10/31/21 @0815) Mike Oleary [Other] (Neurology 02/01/22 @ 1145) CT Angiogram [Other] (01/03/22 @ 8:00 ) Care Physician,No Primary [Primary Care Provider] - In 1 Week (Dr. Vázquez is PCP) Disposition Disposition (needs filled in before D/C Order can be placed): Home, Self Care
[2021-10-13] MEDS: Atorvastatin Calcium 40 MG Tablet PO (20:55)
[2021-10-13] MEDS: traZODone 50 MG Tablet 25 MG PO (20:55)
[2021-10-14 05:00] VITALS: BMI 28.0
[2021-10-14] MEDS: Enoxaparin 40 MG/0.4 ML Syringe SC (06:38)
[2021-10-14] MEDS: Aspirin E.C. 81 MG Tablet PO (08:05)
[2021-10-14] MEDS: Clopidogrel Bisulfate 75 MG Tablet PO (08:05)
[2021-10-14] MEDS: Lisinopril 10 MG Tablet PO (08:05)
[2021-10-14 09:03] VITALS: BP 122/80; PULSE 62; RESP 20; TEMP 36.9; O2SAT 97
[2021-10-14 13:00] VITALS: BP 122/80; PULSE 62; RESP 20; TEMP 36.9; O2SAT 97; BMI 28.0
--- NOTE | 2021-10-14 13:00 | NURSING ---
patient and son aware of dc instruct.
== END 2021-10-14 13:00 | disposition home or self-care (01) | DRG 57 ==
PROVIDERS: Admitting Provider Internal Medicine; Visit Provider Internal Medicine
DX: I69.352 Hemiplegia and hemiparesis following cerebral infarction affecting left dominant side (principal); I69.319 Unspecified symptoms and signs involving cognitive functions following cerebral infarction; E78.5 Hyperlipidemia, unspecified; I10 Essential (primary) hypertension; R22.1 Localized swelling, mass and lump, neck; Z79.01 Long term (current) use of anticoagulants; Z79.02 Long term (current) use of antithrombotics/antiplatelets; Z79.899 Other long term (current) drug therapy; Z79.82 Long term (current) use of aspirin; Z87.891 Personal history of nicotine dependence; Z85.820 Personal history of malignant melanoma of skin
CPT/HCPCS: 36415; 80053; 82274; 83735; 84100; 85025; 92507; 92523; 92611; 96125; 97110; 97116; 97129; 97130; 97162; 97166; 97530; 97535; 97802; 97803; 99251; G0463